=== PATIENT | male | born 1930 | race Caucasian/White ===

== ENCOUNTER 2016-04-02 09:32 | Outpatient (RCR) | payer OTHER ==
[~2016-04-02 09:32] MED LIST: FLOMAX0.4 MG ORAL; METOPROLOL TART50 MG PO; OMEPRAZOLE20 M2 PO; SIMVASTATIN20 MG PO
== END 2016-04-08 | disposition home or self-care (01) ==
LOC: PTY 09:32
DX: R29.818 Other symptoms and signs involving the nervous system (principal); S83.207A Unspecified tear of unspecified meniscus, current injury, left knee, initial encounter; R25.1 Tremor, unspecified; Z91.81 History of falling; R27.9 Unspecified lack of coordination; Z86.010 Personal history of colon polyps; I10 Essential (primary) hypertension; Z87.11 Personal history of peptic ulcer disease; N40.0 Benign prostatic hyperplasia without lower urinary tract symptoms; Z88.0 Allergy status to penicillin; Z91.013 Allergy to seafood

== ENCOUNTER 2016-04-14 09:00 | Outpatient (RCR) | payer OTHER | END 2016-05-06 | disposition home or self-care (01) | LOC: PTY 09:00 | DX: R29.818 Other symptoms and signs involving the nervous system (principal); S83.207A Unspecified tear of unspecified meniscus, current injury, left knee, initial encounter; R25.1 Tremor, unspecified; Z91.81 History of falling; R27.9 Unspecified lack of coordination; Z86.010 Personal history of colon polyps; I10 Essential (primary) hypertension; Z87.11 Personal history of peptic ulcer disease; N40.0 Benign prostatic hyperplasia without lower urinary tract symptoms; Z88.0 Allergy status to penicillin; Z91.013 Allergy to seafood ==

== ENCOUNTER 2016-10-02 08:30 | Outpatient (RCR) | payer OTHER | END 2016-10-06 | disposition home or self-care (01) | LOC: PTY 08:30 | DX: M54.16 Radiculopathy, lumbar region (principal); G62.9 Polyneuropathy, unspecified ==

== ENCOUNTER → 2016-10-06 | Outpatient (RCR) | payer OTHER | END | disposition home or self-care (01) | LOC: PTY 13:00 | DX: R29.818 Other symptoms and signs involving the nervous system (principal); R25.1 Tremor, unspecified; Z91.81 History of falling; R27.9 Unspecified lack of coordination; Z86.010 Personal history of colon polyps; I10 Essential (primary) hypertension; Z87.11 Personal history of peptic ulcer disease; N40.0 Benign prostatic hyperplasia without lower urinary tract symptoms; Z88.0 Allergy status to penicillin; Z91.013 Allergy to seafood ==

== ENCOUNTER 2016-11-03 09:25 | Outpatient (RCR) | payer OTHER | END 2016-11-06 | disposition home or self-care (01) | LOC: PTY 09:25 | DX: R29.818 Other symptoms and signs involving the nervous system (principal); S83.207A Unspecified tear of unspecified meniscus, current injury, left knee, initial encounter; R25.1 Tremor, unspecified; Z91.81 History of falling; R27.9 Unspecified lack of coordination; Z86.010 Personal history of colon polyps; I10 Essential (primary) hypertension; Z87.11 Personal history of peptic ulcer disease; N40.0 Benign prostatic hyperplasia without lower urinary tract symptoms; Z88.0 Allergy status to penicillin; Z91.013 Allergy to seafood ==

== ENCOUNTER → 2016-11-06 | Outpatient (RCR) | payer OTHER | END | disposition home or self-care (01) | LOC: PTY 10-09 08:45 | DX: M54.16 Radiculopathy, lumbar region (principal); G62.9 Polyneuropathy, unspecified ==

== ENCOUNTER 2017-01-01 09:05 | Outpatient (RCR) | payer OTHER | END 2017-01-06 | disposition home or self-care (01) | LOC: PTY 09:05 | DX: M48.02 Spinal stenosis, cervical region (principal); R53.1 Weakness; Z98.1 Arthrodesis status ==

== ENCOUNTER 2017-01-26 08:15 | Outpatient (RCR) | payer OTHER | END 2017-02-05 | disposition home or self-care (01) | LOC: PTY 08:15 | DX: M48.02 Spinal stenosis, cervical region (principal) ==

== ENCOUNTER 2017-03-06 09:00 | Outpatient (RCR) | payer OTHER | END 2017-03-08 | disposition home or self-care (01) | LOC: PTY 09:00 | DX: M48.02 Spinal stenosis, cervical region (principal); R53.1 Weakness; Z98.1 Arthrodesis status ==

== ENCOUNTER 2017-03-16 08:30 | Outpatient (RCR) | payer OTHER | END 2017-04-08 | disposition home or self-care (01) | LOC: PTY 08:30 | DX: M48.02 Spinal stenosis, cervical region (principal); Z98.1 Arthrodesis status ==

== ENCOUNTER 2017-04-13 08:21 | Outpatient (RCR) | payer OTHER | END 2017-05-06 | disposition home or self-care (01) | LOC: PTY 08:21 | DX: M48.02 Spinal stenosis, cervical region (principal); Z98.1 Arthrodesis status ==

== ENCOUNTER 2017-05-11 08:19 | Outpatient (RCR) | payer OTHER | END 2017-06-06 | disposition home or self-care (01) | LOC: PTY 08:19 | DX: M48.02 Spinal stenosis, cervical region (principal); Z98.1 Arthrodesis status ==

== ENCOUNTER 2017-06-26 09:20 | Outpatient (RCR) | payer OTHER | END 2017-07-06 | disposition home or self-care (01) | LOC: PTY 09:20 | DX: M48.02 Spinal stenosis, cervical region (principal); Z98.1 Arthrodesis status ==